=== PATIENT | male | born 1980 | race Asian ===

== ENCOUNTER 2019-02-22 13:47 | Emergency (ER) | payer BC ==
[~2019-02-22] VITALS: Ht 167.6 cm; Wt 86.6 kg
[2019-02-22 15:03] VITALS: BP 121/78
== END 2019-02-22 15:03 | disposition home or self-care (01) ==
LOC: ED 13:47
DX: S05.8X1A Other injuries of right eye and orbit, initial encounter (principal); Z88.6 Allergy status to analgesic agent; W22.8XXA Striking against or struck by other objects, initial encounter; Y93.89 Activity, other specified; Y92.89 Other specified places as the place of occurrence of the external cause; Y99.8 Other external cause status